=== PATIENT | male | born 1960 | race African-American/Black ===

== ENCOUNTER 2016-10-02 14:27 | Emergency (ER) | payer OTHER ==
[~2016-10-02] VITALS: Ht 180.3 cm; Wt 83.4 kg
[~2016-10-02 14:27] MED LIST: ALBUAER INH; CLIN300C10 PO; FLUT115A INH
[2016-10-02 14:35] VITALS: TEMP 37; Ht 180.3 cm; Wt 83.4 kg
[2016-10-02] MEDS ORDERED: KETOROLAC TROMETHAMINE 30 MG/ML VIAL IV STA (14:53)
[2016-10-02] MEDS ORDERED: SODIUM CHLORIDE 0.9% 1000ML 1,000 ML IV STA (14:53)
[2016-10-02] MEDS ORDERED: SODIUM CHLORIDE 0.9% 1000ML 1,000 ML IV ONE (14:53)
--- NOTE | 2016-10-02 14:53 | EMERGENCY ROOM VISIT NOTE ---
History Report prepared by Shay: Kai Gleason Under the Supervision of: Dr. Pino Real M.D. First contact with patient: 14:43 Chief Complaint: ILLNESS Stated Complaint: SORETHROAT, CHEST/ABD PAIN History of Present Illness The patient is a 56 year old male who presents to the Emergency Room with complaints of a persistent illness that started 2 days ago. He says his symptoms worsened last night. The patient's symptoms include a headache, dizziness, achiness, generalized pain, runny nose, sore throat, coughing, nausea , vomiting, and chest pain (with coughing). He has asthma, and has been using an inhaler. The patient just got out of detention 2 weeks ago. He says nobody at detention was sick around him. The patient says he does not have any current chest pain. Source of History: patient, spouse/significant other Onset: 2 days ago Position: other (global - illness) Timing: other (persistent) Associated Symptoms: + chest pain (with coughing), + cough, + headache, + nausea, + sorethroat, + vomiting Note: Associated symptoms: Dizziness, achiness, generalized pain, runny nose. Review of Systems See HPI for pertinent positives & negatives. A total of 10 systems reviewed and were otherwise negative. Past Medical & Surgical Medical Problems: (1) Asthma Old medical records were reviewed. Nurse's notes were reviewed and I agree with. Family History No pertinent family history Social History Smoking Status: Current Every Day Smoker Drug Use: none Marital Status: Housing Status: lives with significant other Occupation Status: unemployed Current/Historical Medications Scheduled Albuterol (Proventil Hfa), 2 PUFFS INH PRN Azithromycin (Zithromax Z-Lambert), 0 PO UD Fluticasone-Salmeterol 115/21 Mcg (Advair Hfa 115/21 Mcg), 1 PUFF INH BID Oseltamivir (Tamiflu), 75 MG PO BID Allergies Coded Allergies: No Known Allergies (Unverified , 12/31/12) Physical Exam Vital Signs Date Time Temp Pulse Resp B/P Pulse Ox O2 Delivery O2 Flow Rate FiO2 10/02/16 17:51 84 18 97/54 98 Room Air 10/02/16 16:35 79 18 113/58 96 Room Air 10/02/16 14:35 37.0 89 18 105/66 94 Room Air Physical Exam General: Well developed well nourished mildly ill appearing but non toxic male in no acute distress, breathing comfortably on room air. Normal speech. Occasional cough. HEENT: Normal cephalic atraumatic. Pupils are equal round and reactive to light. Sclerae anicteric. Extraocular movements are intact. Oropharynx is pink with moist mucous membranes. No swelling of the mouth lips or tongue. Neck: Supple with a midline trachea. No meningeal signs or stiffness, no JVD or bruits. No Stridor. Chest: Clear to auscultation bilaterally. No wheezes or rhonchi. No increased work of breathing. Heart: regular rate and rhythm. Abdomen: Soft nontender, nondistended without rebound guarding or rigidity. Extremities: No cyanosis clubbing or edema. No calf tenderness or assymetry Spine/Back. Non tender to palpation. No CVA tenderness Skin: Good turgor without rashes. Neurologic exam: Cranial nerves two through 12 are intact. Motor and sensation are intact and symmetrical throughout. No tremor or evidence of withdrawal. Medical Decision & Procedures ER Provider Diagnostic Interpretation: X-ray results as stated below per interpretation by me and the radiologist: CHEST ONE VIEW PORTABLE HISTORY: Atypical CHEST PAIN COMPARISON: Chest 02/08/2013. FINDINGS: The lungs are clear. Cardiac silhouette is normal in size. No pleural effusions. No pneumothorax. IMPRESSION: No acute process. Electronically signed by: Asad Tabares M.D. 10/02/2016 3:22 PM Dictated Date/Time: 10/02/2016 3:21 PM Laboratory Results 10/02/16 15:10 Red Blood Count 5.78, Mean Corpuscular Volume 74.2, Mean Corpuscular Hemoglobin 26.6, Mean Corpuscular Hemoglobin Concent 35.9, Mean Platelet Volume 9.5, Neutrophils (%) (Auto) 74.5, Lymphocytes (%) (Auto) 13.5, Monocytes (%) (Auto) 9.0, Eosinophils (%) (Auto) 2.4, Basophils (%) (Auto) 0.3, Neutrophils # (Auto) 13.09, Lymphocytes # (Auto) 2.38, Monocytes # (Auto) 1.59, Eosinophils # (Auto) 0.43, Basophils # (Auto) 0.06 10/02/16 15:10 Test 10/02/16 15:10 White Blood Count 17.60 K/uL (4.8-10.8) Red Blood Count 5.78 M/uL (4.7-6.1) Hemoglobin 15.4 g/dL (14.0-18.0) Hematocrit 42.9 % (42-52) Mean Corpuscular Volume 74.2 fL (80-100) Mean Corpuscular Hemoglobin 26.6 pg (25-34) Mean Corpuscular Hemoglobin Concent 35.9 g/dl (32-36) Platelet Count 311 K/uL (130-400) Mean Platelet Volume 9.5 fL (7.4-10.4) Neutrophils (%) (Auto) 74.5 % Lymphocytes (%) (Auto) 13.5 % Monocytes (%) (Auto) 9.0 % Eosinophils (%) (Auto) 2.4 % Basophils (%) (Auto) 0.3 % Neutrophils # (Auto) 13.09 K/uL (1.4-6.5) Lymphocytes # (Auto) 2.38 K/uL (1.2-3.4) Monocytes # (Auto) 1.59 K/uL (0.11-0.59) Eosinophils # (Auto) 0.43 K/uL (0-0.5) Basophils # (Auto) 0.06 K/uL (0-0.2) RDW Standard Deviation 41.3 fL (36.4-46.3) RDW Coefficient of Variation 15.4 % (11.5-14.5) Immature Granulocyte % (Auto) 0.3 % Immature Granulocyte # (Auto) 0.05 K/uL (0.00-0.02) Anion Gap 7.0 mmol/L (3-11) Est Creatinine Clear Calc Drug Dose 97.7 ml/min Estimated GFR () 108.9 Estimated GFR (Non- 94.0 BUN/Creatinine Ratio 9.3 (10-20) Calcium Level 8.7 mg/dl (8.5-10.1) Total Bilirubin 1.3 mg/dl (0.2-1) Direct Bilirubin 0.2 mg/dl (0-0.2) Aspartate Amino Transf (AST/SGOT) 12 U/L (15-37) Alanine Aminotransferase (ALT/SGPT) 22 U/L (12-78) Alkaline Phosphatase 92 U/L (45-117) Total Protein 7.5 gm/dl (6.4-8.2) Albumin 3.6 gm/dl (3.4-5.0) Lipase 76 U/L (73-393) Influenza Type A Antigen Neg for Influ A (NEG) Influenza Type B Antigen Neg for Influ B (NEG) Laboratory studies as stated above per my review. Medications Administered Medications (Trade) Dose Ordered Sig/Tami Route Start Time Stop Time Status Last Admin Dose Admin Sodium Chloride (Nss 1000ml) 1,000 ml @ 999 mls/hr Q1H1M STAT IV 10/02/16 14:53 10/02/16 15:53 DC 10/02/16 14:53 999 MLS/HR Ketorolac Tromethamine (Toradol Inj) 30 mg NOW STAT IV 10/02/16 14:53 10/02/16 14:57 DC 10/02/16 15:13 30 MG Azithromycin (Zithromax Tab) 500 mg NOW ONCE PO 10/02/16 17:45 10/02/16 17:46 DC 10/02/16 17:42 500 MG Oseltamivir Phosphate (Tamiflu Cap) 75 mg ONE STAT PO 10/02/16 17:35 10/02/16 17:37 DC 10/02/16 17:42 75 MG ED Course 1444: Past medical records reviewed. The patient was evaluated in room C1B, and a complete history and physical examination were performed. 1730: I reevaluated the patient and he wants something to eat. I am having case management talk to him to help the patient obtain his antibiotics as an outpatient. The patient verbally expressed agreement and understanding of the treatment plan. The patient will be discharged. 1735: Ordered Tamiflu Cap 75 mg PO. 1745: Ordered Zithromax Tab 500 mg PO. Medical Decision Differential diagnoses include: influenza, bronchitis, dehydration, pneumonia, pharyngitis, electrolyte or metabolic abnormalities. This patient comes in as described above. He is placed in room C1. He doesn't history of asthma. Seen here last night with family members were sick and now he feels sick like he has the flu he has diffuse body aches he is a cough and runny nose and achiness. He does have a headache however he has no meningeal signs or stiffness does not appear to be toxic this is also just been one part of his constellation of symptoms. Clinically, he has an influenza-like illness. IV access established was hydrated with IV normal saline. He was given Toradol 30 mg IV. he is feeling better. He is eating food and fluids while he was here. Influenza was negative however this could be a false negative as the test is not a very sensitive test. Chest x-ray was unremarkable and shows no pneumonia or pneumothorax. thereare no acute electrolyte or metabolic abnormalities seen. Count is moderately elevated at 17 however this is nonspecific and I do not find any significant bacterial illness at this point The patient feels good and would like to go home. I will treat him for influenza was given Tamiflu here as well as a prescription for Tamiflu. I will also treat him with antibiotics with azithromycin Z-Lambert again the first dose was given here. Additionally, an azithromycin prescription was also given. He does have a history of asthma and I do think that's antibiotic coverage is warranted due to this. He may have more of a sinusitis bronchitis type picture as well. He feels good and like to go home. he'll rest and drink plenty of fluids .use ibuprofen [id number] for pain return if: Worsening of symptoms, not tolerating fluids, any problems or concerns. He is happy the plan and discharged to home. Impression Primary Impression: Influenza-like illness Additional Impression: Bronchitis Scribe Attestation The scribe's documentation has been prepared under my direction and personally reviewed by me in its entirety. I confirm that the note above accurately reflects all work, treatment, procedures, and medical decision making performed by me. Departure Information Dispostion Home / Self-Care Prescriptions Oseltamivir (Tamiflu) 75 Mg Cap 75 MG PO BID, #10 CAP Prov: Pino Real M.D. 10/02/16 Azithromycin (ZITHROMAX Z-LAMBERT) 250 Mg Tab 0 PO UD, #1 PKT Prov: Pino Real M.D. 10/02/16 Referrals No Doctor, Assigned (PCP) Forms HOME CARE DOCUMENTATION FORM, IMPORTANT VISIT INFORMATION, WORK / SCHOOL INSTRUCTIONS Patient Instructions A Signature Page, [facility] Additional Instructions Rest. Drink plenty of fluids. Use azithromycin Z-Lambert as directedantibiotic Use Tamiflu twice a day for 5 days-antiviral for the flu Continue to use your inhaler if needed For pain, may use ibuprofen 600 mg every 6 hours, take with food Return to the ER if: Worsening symptoms, not tolerating fluids, increasing pain , shortness of breath, any new problems concerns Up with your doctor this week for recheck or return to ER if symptoms worsen
--- NOTE | 2016-10-02 15:24 | DIAGNOSTIC IMAGING REPORT ---
CHEST ONE VIEW PORTABLE HISTORY: Atypical CHEST PAIN COMPARISON: Chest 02/08/2013. FINDINGS: The lungs are clear. Cardiac silhouette is normal in size. No pleural effusions. No pneumothorax. IMPRESSION: No acute process. Electronically signed by: Asad Tabares M.D. 10/02/2016 3:22 PM Dictated Date/Time: 10/02/2016 3:21 PM
[2016-10-02 15:28] LABS: BASO % 0.3 %; BASO ABS # 0.06 K/uL (0-0.2); COMPLETE YES; EOS % 2.4 %; HEMATOCRIT 42.9 % (42-52); IG% 0.3 %; LYMPH % 13.5 %; LYMPH ABS # 2.38 K/uL (1.2-3.4); MEAN CELL VOLUME 74.2 fL (80-100); MEAN CORPUSCULAR HEMOGLOBIN 26.6 pg (25-34); MEAN CORPUSCULAR HGB CONC 35.9 g/dl (32-36); MEAN PLATELET VOLUME 9.5 fL (7.4-10.4); NEUT % 74.5 %; PLATELET COUNT 311 K/uL (130-400); RED BLOOD COUNT 5.78 M/uL (4.7-6.1)
[2016-10-02 15:47] LABS: BUN/CREATININE RATIO 9.3 (10-20); CALCIUM 8.7 mg/dl (8.5-10.1); CREATININE 0.92 mg/dl (0.60-1.40); POTASSIUM 3.5 mmol/L (3.5-5.1)
[2016-10-02] MEDS ORDERED: OSELTAMIVIR PHOSPHATE 75 MG CAP PO STA (17:35)
[2016-10-02] MEDS ORDERED: OSEL75CA12 PO (17:38)
[2016-10-02] MEDS ORDERED: AZITTAB PO (17:38)
[2016-10-02] MEDS ORDERED: AZITHROMYCIN 250 MG TAB PO ONE (17:45)
[2016-10-02 17:51] VITALS: BP 97/54; PULSE 84; O2SAT 98
== END 2016-10-02 17:53 | disposition home or self-care (01) ==
LOC: C.EDB 14:29 → C.EDC 17:53
DX: J11.1 Influenza due to unidentified influenza virus with other respiratory manifestations (principal); J40 Bronchitis, not specified as acute or chronic; J45.909 Unspecified asthma, uncomplicated; F17.200 Nicotine dependence, unspecified, uncomplicated

== ENCOUNTER 2022-12-09 19:29 | Observation (INO) ==
[2022-12-09 20:32] LABS: Hematocrit (blood only) 39.1 % (42.0-52.0); Hemoglobin 14.2 g/dl (14.0-18.0); Mean Corpuscular Hgb Conc 36.3 g/dL (32.0-36.0); Mean Corpuscular Volume 74.5 fL (80.0-100.0); Mean Platelet Volume 8.7 fL (9.4-12.4); Platelet Count 615 K/uL (130-400); RDW Coefficient of Variation 13.5 % (11.5-14.5); RDW Standard Deviation 35.9 fL (36.4-46.3); Red Blood Count 5.25 M/uL (4.70-6.10); White Blood Count 11.84 K/ul (4.8-10.8)
[2022-12-09 20:33] LABS: Appearance Urine Cloudy (Clear); Bacteria Urine Automated Negative (Negative); Bilirubin Urine Negative (Negative); Blood Urine Negative (Negative); Color Urine Yellow; Glucose Urine UA Negative (Negative); Ketones Urine Negative (Negative); Leukocyte Esterase Urine Negative (Negative); Nitrite Urine Negative (Negative); Protein Urine Trace (Negative); RBC Urine Automated 0-4 /hpf (0-4); Specific Gravity Urine 1.023 (1.000-1.030); Urobilinogen Urine Negative (Negative); pH Urine 6.5 (4.5-7.5)
[2022-12-09 20:48] LABS: Alanine Aminotransferase 22 U/L (7-52); Albumin Globulin Ratio 0.9 (0.9-2); Albumin Level 3.7 gm/dl (3.4-5.0); Alkaline Phosphatase 86 U/L (34-104); Anion Gap 6 (3-11); Aspartate Aminotransferase 15 U/L (13-39); BUN Creatinine Ratio 15.8 (10-20); Bilirubin,Total 0.3 mg/dl (0.2-1.0); Blood Urea Nitrogen 12 mg/dl (6-23); Calcium 9.5 mg/dl (8.5-10.1); Carbon Dioxide 27 mmol/L (21-32); Chloride 104 mmol/L (98-107); Est GFR (African American) 114.9 ml/min; Est GFR (Non-African American) 99.2 ml/min; Globulin 4.2 gm/dl (2.5-4.0); Glucose 155 mg/dl (70-99(Fasting)); Lipase 15 U/L (11-82); Sodium 137 mmol/L (136-145); Total Protein 7.9 gm/dl (6.0-8.3)
[2022-12-09] MEDS ORDERED: ONDANSETRON INJ 2 MG/ML 2 ML VIAL IV STA (22:09)
[2022-12-09 22:13] LABS: Basophils # (auto) 0.12 K/uL (0-0.2); Eosinophils # (auto) 0.92 K/uL (0-0.50); Eosinophils % (auto) 7.8 %; Immature Granulocytes # (auto) 0.24 K/uL (0.01-0.20); Lymphocytes # (auto) 2.36 K/uL (1.2-3.4); Lymphocytes % (auto) 19.9 %; Monocytes # (auto) 1.24 K/uL (0.11-0.59); Monocytes % (auto) 10.5 %; Neutrophils # (auto) 6.96 K/uL (1.40-6.50); Neutrophils % (auto) 58.8 %; Polychromasia 1+; Target Cells 2+; Toxic Vacuolation 1+
[2022-12-09] MEDS ORDERED: SODIUM CHLORIDE 0.9% 1000ML 1,000 ML IV SCH (22:15)
[2022-12-09] MEDS: MoRPHine SULFATE 4 MG/ML 1 ML CARP\\VIAL IV PRN (22:22)
[2022-12-09 22:58] LABS: Troponin I High Sensitivity 5.8 pg/ml (0-20)
[2022-12-09] MEDS ORDERED: OPTIRAY 320 500ml IV ONE (22:58)
--- NOTE | 2022-12-10 00:14 | CT Scan Report ---
Exam(s): CTA CHEST IV Amt: 112ml optiray 320 EXAM: CT Angiography Chest With Intravenous Contrast CLINICAL HISTORY: Reason for exam: PE. TECHNIQUE: Axial computed tomographic angiography images of the chest with intravenous contrast. CTDI is 20 mGy and DLP is 586.04 mGy-cm. Automated exposure control was utilized for the study. A dose lowering technique was utilized adhering to the principles of ALARA. MIP reconstructed images were created and reviewed. COMPARISON: No relevant prior studies available. FINDINGS: Pulmonary arteries: There is a tiny partially obstructive pulmonary embolus in the left lower lobe subsegmental pulmonary artery. Aorta: No acute findings. No thoracic aortic aneurysm. Lungs: Moderate to heavy peribronchial thickening of the central and peripheral bronchi with right lower lobe consolidation and ground-glass patchy opacities throughout the lungs. Pleural space: Unremarkable. No significant effusion. No pneumothorax. Heart: Unremarkable. No cardiomegaly. No significant pericardial effusion. No evidence of RV dysfunction. Bones/joints: No acute fracture. No dislocation. Soft tissues: Unremarkable. Lymph nodes: Enlarged mediastinal hilar lymph nodes. IMPRESSION: 1. Tiny partially obstructive pulmonary embolus in the left lower lobe segmental pulmonary artery. 2. Findings concerning for atypical pneumonia with left lower lobe consolidation. Communications: Call Doctor Above results Electronically signed by: Jenny Partida MD 12/10/22 00:13 AM
--- NOTE | 2022-12-10 00:31 | CT Scan Report ---
Exam(s): CT ABDOMEN + PELVIS With Contrast IV Amt: 112 ml optiray 320 EXAM: CT Abdomen and Pelvis With Intravenous Contrast CLINICAL HISTORY: abd pain/right side back pain. TECHNIQUE: Axial computed tomography images of the abdomen and pelvis with intravenous contrast. CTDI is 28 mGy and DLP is 586.04 mGy-cm. Automated exposure control was utilized for the study. A dose lowering technique was utilized adhering to the principles of ALARA. CONTRAST: Patient received 112 ml optiray 320 of IV contrast COMPARISON: No relevant prior studies available. FINDINGS: Lung bases: Patchy to confluent bibasilar airspace consolidations involving both lower lobes and minimally in the anteromedial minimally included right upper lobe. ABDOMEN: Liver: Unremarkable. No mass. Gallbladder and bile ducts: Unremarkable. No calcified stones. No ductal dilation. Pancreas: Unremarkable. No mass. No ductal dilation. Spleen: Unremarkable. No splenomegaly. Adrenals: Unremarkable. No mass. Kidneys and ureters: There is malrotation of the right kidney. The kidneys demonstrate normal enhancement without hydronephrosis or obstructing nephrolithiasis. Stomach and bowel: No evidence for focal high-grade bowel obstruction. There are a few small bowel loops in the inferior pelvis demonstrating retained material without evidence for bowel dilation. No significant mucosal thickening. PELVIS: Appendix: The appendix is suggested medial to the cecum but is poorly delineated. No secondary findings to suggest acute appendicitis. Bladder: Unremarkable. No mass. Reproductive: Unremarkable as visualized. ABDOMEN and PELVIS: Intraperitoneal space: Unremarkable. No free air. No significant fluid collection. Bones/joints: Degenerative changes involving the lumbar spine. No acute osseous abnormality. No dislocation. Soft tissues: Unremarkable. Vasculature: Unremarkable. No abdominal aortic aneurysm. Lymph nodes: Unremarkable. No enlarged lymph nodes. IMPRESSION: 1. Patchy to confluent bibasilar airspace consolidations involving both lower lobes and minimally in the anteromedial minimally included right upper lobe. Findings are consistent with pneumonia. 2. No evidence for focal high-grade bowel obstruction. There are a few small bowel loops in the inferior pelvis demonstrating retained material without evidence for bowel dilation. Suspect normal variation. However, subtle enteritis with delayed transit through the small bowel is also a consideration. No free intraperitoneal fluid or pneumoperitoneum. Electronically signed by: Kai Bright MD 12/10/22 00:29 AM
[2022-12-10] MEDS: MoRPHine SULFATE 4 MG/ML 1 ML CARP\\VIAL IV PRN (03:00)
[2022-12-10] MEDS ORDERED: ONDANSETRON INJ 2 MG/ML 2 ML VIAL IV PRN (03:31)
[2022-12-10] MEDS ORDERED: ACETAMINOPHEN 325 MG TAB PO PRN (03:31)
[2022-12-10] MEDS ORDERED: cefTRIAXone SODIUM 1,000 MG in DEXTROSE 5% AD-VAN 50 ML IV SCH (04:00)
[2022-12-10] MEDS ORDERED: ENOXAPARIN 80 MG/0.8 ML SYR SQ STA (04:15)
--- NOTE | 2022-12-10 05:10 | History & Physical Report ---
Date of Service December 10, 2022 Assessment & Plan (1) Pulmonary embolism on left: (2) Pneumonia: (3) Hypoxia: (4) Asthma: (5) Tobacco use disorder: Plan Bilateral lower lobe pneumonia, left greater than right/asthma history- Consolidation left lower lobe Atypical presentation bilaterally Ceftriaxone 1 g IV daily Azithromycin 500 mg IV daily DuoNebs every 4 hours as needed Albuterol HFA 2 puffs 4 times daily Pulmonary embolism left lower lobe- Start Lovenox 1 mg/kg subcu every 12 hours tonight, and plan to convert to Eliquis prior to discharge Significant left thigh pain. We will order bilateral lower extremity venous Dopplers to assess for DVT Tobacco use disorder- NicoDerm patch Admission and Anticipated Discharge Date Admission Date: December 10, 2022 History of Present Illness Chief Complaint: The patient presents to the emergency department with complaint of persistent productive cough, shortness of breath, dyspnea on exertion, left thigh pain. He also has GI discomfort that he attributes to the antibiotic Keflex he was prescribed at the emergency department when he initially presented on 12/03/2022. Primary Care Provider: NO PCP The patient is a 62-year-old male with a past medical history including asthma and tobacco use. He initially presented to the emergency department on 12/03/2022 with symptoms as above, except for left thigh pain. He was found to have pneumonia at that time, and was advised to be admitted to the hospital, however, he left AMA due to home living and working situation. He has a special needs child who is 16, and his and he all moved to the area 2 weeks ago. He has found a place to live, however, the abdomen living in the [facility] for a few days. He has been working at [employer], reports that he enjoys cooking, and is concerned about missing his job. Chest x-ray reveals bilateral lower lobe infiltrates. CT angiography chest PE protocol in addition, notes a small segmental left lower lobe pulmonary embolism. I have added bilateral lower extremity venous Dopplers, to assess for associated DVT. Allergies Allergy/AdvReac Type Severity Reaction Status Date / Time No Known Allergies Allergy Unverified 12/09/22 21:24 Home Medications Medication Instructions Recorded Confirmed Type cephalexin 500 mg capsule 500 mg PO Q6H 10 days #40 caps 12/03/22 12/09/22 Rx Past Med/Surg History Social History Smoking Status: Current every day smoker Second Hand Exposure: Yes; Do You Dip or Chew Tobacco: No; Tobacco Cessation Education Requested by Patient: Yes Hx Alcohol Use: Yes Alcohol type: beer Hx Substance Use: No Preferred Language: Yakut Communication Ability: Effective Dental Technologist Required: No Beliefs That Will Affect Care: None Current Living Situation: Spouse and Family Other Information That Helps Us Care for You: No Feels Safe at Home: Yes Safety Concerns: Feels Safe At This Time Assistive Devices: Glasses Review of Systems Review of Systems: The patient denies palpitations, lower extremity swelling, sore throat, fevers, chills, sweats, weight change, fatigue, nausea, vomiting, diarrhea , constipation, abdominal pain, pelvic pain, blood in urine or stool, dysuria, urinary frequency or urgency, lightheadedness, dizziness, headache, memory loss, loss of consciousness, rash, abnormal bruising or bleeding, imbalance, focal or generalized weakness, numbness or tingling in arms or right leg, generalized arthralgias or myalgias, back or neck pain, or night sweats. The review of systems is otherwise negative other than for that already noted above, and at least 10 systems have been reviewed. Physical Exam Physical Exam: The patient is awake, alert and oriented 3, well developed and well nourished, normocephalic and atraumatic, lying in bed and in no acute distress. HEENT--PERRL, EOMI, mucous membranes and oropharynx normal. Neck--supple. No JVD. No bruits. Thyroid normal, trachea midline, no adenopathy. Heart--normal S1 and S2. No murmurs, rubs or gallops. Lungs--decreased breath sounds at the bases bilaterally. No respiratory distress, no accessory muscle use. Abdomen--normal bowel sounds and soft. Nontender. Nondistended, no hernias or masses, no organomegaly. Extremities--no edema. Mild reproducible pain left lateral thigh Dermatologic--normal skin turgor, normal color, no abnormal lymph nodes, no rash. Neurologic--cranial nerves II through XII grossly intact. Rheumatologic-range of motion limited by left thigh pain Psychiatric--normal affect. Results & Data Results & Data Vital Signs (Past 12 Hours) Vital Signs Temp Pulse Pulse Resp BP BP Pulse Ox 12/10/22 03:38 36.8 C 54 L 15 135/73 94 12/10/22 03:03 69 18 147/85 H 94 12/10/22 00:36 98 H 20 126/72 93 12/09/22 21:05 68 20 153/77 H 93 12/09/22 23:41 96 12/09/22 19:38 36.9 C 73 20 130/69 94 O2 Del Method 12/10/22 03:38 Room Air 12/10/22 03:03 Room Air 12/10/22 00:36 Room Air 12/09/22 21:05 Room Air 12/09/22 23:41 Room Air 12/09/22 19:38 Room Air Laboratory Results Laboratory Results WBC 11.84 K/ul (4.8-10.8) H 12/09/22 20:11 RBC 5.25 M/uL (4.70-6.10) 12/09/22 20:11 Hgb 14.2 g/dl (14.0-18.0) 12/09/22 20:11 Hct 39.1 % (42.0-52.0) L 12/09/22 20:11 MCV 74.5 fL (80.0-100.0) L 12/09/22 20:11 MCH 27.0 pg (25.0-34.0) 12/09/22 20:11 MCHC 36.3 g/dL (32.0-36.0) H 12/09/22 20:11 RDW Std Deviation 35.9 fL (36.4-46.3) L 12/09/22 20:11 RDW Coeff of Randi 13.5 % (11.5-14.5) 12/09/22 20:11 Plt Count 615 K/uL (130-400) H 12/09/22 20:11 MPV 8.7 fL (9.4-12.4) L 12/09/22 20:11 Immature Gran % (Auto) 2.0 % 12/09/22 20:11 Neut % (Auto) 58.8 % 12/09/22 20:11 Lymph % (Auto) 19.9 % 12/09/22 20:11 Kent % (Auto) 10.5 % 12/09/22 20:11 Eos % (Auto) 7.8 % 12/09/22 20:11 Baso % (Auto) 1.0 % 12/09/22 20:11 Neut # (Auto) 6.96 K/uL (1.40-6.50) H 12/09/22 20:11 Lymph # (Auto) 2.36 K/uL (1.2-3.4) 12/09/22 20:11 Kent # (Auto) 1.24 K/uL (0.11-0.59) H 12/09/22 20:11 Eos # (Auto) 0.92 K/uL (0-0.50) H 12/09/22 20:11 Baso # (Auto) 0.12 K/uL (0-0.2) 12/09/22 20:11 Immature Gran # (Auto) 0.24 K/uL (0.01-0.20) H 12/09/22 20:11 Toxic Vacuolation 1+ 12/09/22 20:11 Polychromasia 1+ 12/09/22 20:11 Target Cells 2+ 12/09/22 20:11 Sodium 137 mmol/L (136-145) 12/09/22 20:11 Potassium 4.0 mmol/L (3.5-5.1) 12/09/22 20:11 Chloride 104 mmol/L (98-107) 12/09/22 20:11 Carbon Dioxide 27 mmol/L (21-32) 12/09/22 20:11 Anion Gap 6 (3-11) 12/09/22 20:11 BUN 12 mg/dl (6-23) 12/09/22 20:11 Creatinine 0.76 mg/dl (0.6-1.4) 12/09/22 20:11 Est Cr Clr Drug Dosing Not Reportable 12/09/22 20:11 Est GFR ( Amer) 114.9 ml/min 12/09/22 20:11 Est GFR (Non-Af Amer) 99.2 ml/min 12/09/22 20:11 BUN/Creatinine Ratio 15.8 (10-20) 12/09/22 20:11 Glucose 155 mg/dl (70-99(Fasting)) H 12/09/22 20:11 Calcium 9.5 mg/dl (8.5-10.1) 12/09/22 20:11 Total Bilirubin 0.3 mg/dl (0.2-1.0) 12/09/22 20:11 AST 15 U/L (13-39) 12/09/22 20:11 ALT 22 U/L (7-52) 12/09/22 20:11 Alkaline Phosphatase 86 U/L (34-104) 12/09/22 20:11 Troponin I High Sens 5.8 pg/ml (0-20) 12/09/22 20:11 Total Protein 7.9 gm/dl (6.0-8.3) 12/09/22 20:11 Albumin 3.7 gm/dl (3.4-5.0) 12/09/22 20:11 Globulin 4.2 gm/dl (2.5-4.0) H 12/09/22 20:11 Albumin/Globulin Ratio 0.9 (0.9-2) 12/09/22 20:11 Lipase 15 U/L (11-82) 12/09/22 20:11 Urine Color Yellow 12/09/22 20:10 Urine Appearance Cloudy (Clear) A 12/09/22 20:10 Urine pH 6.5 (4.5-7.5) 12/09/22 20:10 Ur Specific [place]ward 1.023 (1.000-1.030) 12/09/22 20:10 Urine Protein Trace (Negative) H 12/09/22 20:10 Urine Glucose (UA) Negative (Negative) 12/09/22 20:10 Urine Ketones Negative (Negative) 12/09/22 20:10 Urine Blood Negative (Negative) 12/09/22 20:10 Urine Nitrite Negative (Negative) 12/09/22 20:10 Urine Bilirubin Negative (Negative) 12/09/22 20:10 Urine Urobilinogen Negative (Negative) 12/09/22 20:10 Ur Leukocyte Esterase Negative (Negative) 12/09/22 20:10 Urine WBC (Auto) 1-5 /hpf (0-5) 12/09/22 20:10 Urine RBC (Auto) 0-4 /hpf (0-4) 12/09/22 20:10 U Hyaline Cast (Auto) 1-5 /lpf (0-5) 12/09/22 20:10 U Epithel Cells (Auto) 5-10 /lpf (0-5) H 12/09/22 20:10 Urine Bacteria (Auto) Negative (Negative) 12/09/22 20:10 SARS-CoV-2, RNA, NAAT NEGATIVE (NEGATIVE) 12/10/22 01:15 Impressions Abdomen/Pelvis CT 12/09/22 22:09 Exam(s): CT ABDOMEN + PELVIS With Contrast IV Amt: 112 ml optiray 320 EXAM: CT Abdomen and Pelvis With Intravenous Contrast CLINICAL HISTORY: abd pain/right side back pain. TECHNIQUE: Axial computed tomography images of the abdomen and pelvis with intravenous contrast. CTDI is 28 mGy and DLP is 586.04 mGy-cm. Automated exposure control was utilized for the study. A dose lowering technique was utilized adhering to the principles of ALARA. CONTRAST: Patient received 112 ml optiray 320 of IV contrast COMPARISON: No relevant prior studies available. FINDINGS: Lung bases: Patchy to confluent bibasilar airspace consolidations involving both lower lobes and minimally in the anteromedial minimally included right upper lobe. ABDOMEN: Liver: Unremarkable. No mass. Gallbladder and bile ducts: Unremarkable. No calcified stones. No ductal dilation. Pancreas: Unremarkable. No mass. No ductal dilation. Spleen: Unremarkable. No splenomegaly. Adrenals: Unremarkable. No mass. Kidneys and ureters: There is malrotation of the right kidney. The kidneys demonstrate normal enhancement without hydronephrosis or obstructing nephrolithiasis. Stomach and bowel: No evidence for focal high-grade bowel obstruction. There are a few small bowel loops in the inferior pelvis demonstrating retained material without evidence for bowel dilation. No significant mucosal thickening. PELVIS: Appendix: The appendix is suggested medial to the cecum but is poorly delineated. No secondary findings to suggest acute appendicitis. Bladder: Unremarkable. No mass. Reproductive: Unremarkable as visualized. ABDOMEN and PELVIS: Intraperitoneal space: Unremarkable. No free air. No significant fluid collection. Bones/joints: Degenerative changes involving the lumbar spine. No acute osseous abnormality. No dislocation. Soft tissues: Unremarkable. Vasculature: Unremarkable. No abdominal aortic aneurysm. Lymph nodes: Unremarkable. No enlarged lymph nodes. IMPRESSION: 1. Patchy to confluent bibasilar airspace consolidations involving both lower lobes and minimally in the anteromedial minimally included right upper lobe. Findings are consistent with pneumonia. 2. No evidence for focal high-grade bowel obstruction. There are a few small bowel loops in the inferior pelvis demonstrating retained material without evidence for bowel dilation. Suspect normal variation. However, subtle enteritis with delayed transit through the small bowel is also a consideration. No free intraperitoneal fluid or pneumoperitoneum. Electronically signed by: Kai Bright MD 12/10/22 00:29 AM Chest CTA 12/09/22 22:09 CR Exam(s): CTA CHEST IV Amt: 112ml optiray 320 EXAM: CT Angiography Chest With Intravenous Contrast CLINICAL HISTORY: Reason for exam: PE. TECHNIQUE: Axial computed tomographic angiography images of the chest with intravenous contrast. CTDI is 20 mGy and DLP is 586.04 mGy-cm. Automated exposure control was utilized for the study. A dose lowering technique was utilized adhering to the principles of ALARA. MIP reconstructed images were created and reviewed. COMPARISON: No relevant prior studies available. FINDINGS: Pulmonary arteries: There is a tiny partially obstructive pulmonary embolus in the left lower lobe subsegmental pulmonary artery. Aorta: No acute findings. No thoracic aortic aneurysm. Lungs: Moderate to heavy peribronchial thickening of the central and peripheral bronchi with right lower lobe consolidation and ground-glass patchy opacities throughout the lungs. Pleural space: Unremarkable. No significant effusion. No pneumothorax. Heart: Unremarkable. No cardiomegaly. No significant pericardial effusion. No evidence of RV dysfunction. Bones/joints: No acute fracture. No dislocation. Soft tissues: Unremarkable. Lymph nodes: Enlarged mediastinal hilar lymph nodes. IMPRESSION: 1. Tiny partially obstructive pulmonary embolus in the left lower lobe segmental pulmonary artery. 2. Findings concerning for atypical pneumonia with left lower lobe consolidation. Communications: Call Doctor Above results Electronically signed by: Jenny Partida MD 12/10/22 00:13 AM Code Status & VTE Plan Code Status Full code VTE Prophylaxis Plan VTE Prophylaxis will be ordered: Yes PG Care Time/CCT Total # of Minutes Spent Total Time Spent with Patient: Total time spent is greater than 50% in coordination of care (as documented) at patient's floor/unit and/or counseling patient: Coding Level of Care Code 14662 INT INP/OBS CARE 2/55MIN Diagnoses Pulmonary embolism on left I26.99 Pneumonia J18.9 Hypoxia R09.02 Asthma J45.909 Tobacco use disorder F17.200
[2022-12-10] MEDS ORDERED: ALBUT/IPRATROP 3MG/0.5MG NEB 3 ML VIAL NEB PRN (05:17)
[2022-12-10] MEDS: AZITHROMYCIN 500 MG in DEXTROSE 5% 250 ML IV SCH (05:55)
[2022-12-10] MEDS ORDERED: ENOXAPARIN 80 MG/0.8 ML SYR SQ SCH (06:00)
--- NOTE | 2022-12-10 06:48 | Emergency Department Note ---
History of Present Illness General Chief complaint: Vomiting Stated complaint: BLOOD IN STOOL,SOB,VOMITING Time Seen by Provider: 12/09/22 21:20 History of Present Illness Maximum Pain Intensity: 7 This is a 62-year-old male presenting to the emergency department for evaluation of abdominal pain, shortness of breath, and vomiting. The patient was seen about 6 days ago in this facility and diagnosed with pneumonia. At that visit he had a markedly elevated white blood cell count of 27,000. The patient was to be admitted, but refused, and left AGAINST MEDICAL ADVICE. The patient was given prescriptions for Zithromax and Keflex, which he has been taking as prescribed. He believes the antibiotics are causing most of his symptoms. The patient has a very atypical social situation at this time. He recently moved to the area and is working at [employer]. He has a special needs child. At one point in the past month he was living inside a [employer]. The patient does not typically go to the doctor and considers himself healthy. He rates his discomfort today as 7/10. Home Medications Medication Instructions Recorded Confirmed Type cephalexin 500 mg capsule 500 mg PO Q6H 10 days #40 caps 12/03/22 12/09/22 Rx Allergies Allergy/AdvReac Type Severity Reaction Status Date / Time No Known Allergies Allergy Unverified 12/09/22 21:24 Past Med/Surg History Medical History Pulmonary embolism on left Tobacco use disorder Surgical History No significant past surgical history Social History Smoking Status: Current every day smoker Second Hand Exposure: Yes; Do You Dip or Chew Tobacco: No; Tobacco Cessation Education Requested by Patient: Yes Hx Alcohol Use: Yes Alcohol type: beer Hx Substance Use: No Preferred Language: Uzbek Communication Ability: Effective Practice Support Specialist Required: No Beliefs That Will Affect Care: None Current Living Situation: Spouse and Family Other Information That Helps Us Care for You: No Feels Safe at Home: Yes Safety Concerns: Feels Safe At This Time Assistive Devices: Glasses Review of Systems A total of 10 systems reviewed and were otherwise negative Physical Exam Vital Signs Vital Signs - 24 hr 12/09/22 19:38 12/09/22 23:41 12/09/22 21:05 Temperature 36.9 C Temperature Source Temporal Artery Scan Pulse Rate 73 Pulse Rate [Apical] 68 Pulse Rhythm [Apical] Regular Pulse Strength [Apical] Normal Respiratory Rate 20 20 Respiratory Effort / Characteristics Non-Labored Spontaneous Non-Labored Respiratory Depth Normal Normal Respiratory Pattern Regular Blood Pressure 130/69 Blood Pressure [Right Arm] 153/77 H Blood Pressure Mean 89 Blood Pressure Mean [Right Arm] 102 Pulse Oximetry 94 96 93 Oxygen Delivery Method Room Air Room Air Room Air Sepsis Recent Fever Within 48 Hours No Sepsis New/Unexplained Change in Mental Status N/A Sepsis Action Taken by Nursing No Action Required 12/10/22 00:36 Temperature Temperature Source Pulse Rate Pulse Rate [Apical] 98 H Pulse Rhythm [Apical] Regular Pulse Strength [Apical] Normal Respiratory Rate 20 Respiratory Effort / Characteristics Non-Labored Respiratory Depth Normal Respiratory Pattern Regular Blood Pressure Blood Pressure [Right Arm] 126/72 Blood Pressure Mean Blood Pressure Mean [Right Arm] 90 Pulse Oximetry 93 Oxygen Delivery Method Room Air Sepsis Recent Fever Within 48 Hours Sepsis New/Unexplained Change in Mental Status Sepsis Action Taken by Nursing VITALS: Vitals are noted on the nurse's note and reviewed by myself. Vital signs stable. GENERAL: Well-developed, well-nourished, black male, who is moderately uncomfortable on presentation. HEAD: Normocephalic atraumatic. NECK: Supple without nuchal rigidity. No lymphadenopathy. No thyromegaly. Cervical spine is nontender. HEART: Regular rate and rhythm without murmurs gallops or rubs. LUNGS: Generally clear with diminished sounds at the bases bilaterally. ABDOMEN: Positive normal bowel sounds x 4. Soft, nontender, without masses or organomegaly. No guarding or rebound tenderness. MUSCULOSKELETAL: No muscle atrophy, erythema, or edema noted. Full range of motion in all extremities. NEURO: Patient was alert and oriented to person place and time. CN II through XII grossly intact. Course Administered Medications Ceftriaxone Sodium 1,000 mg/ (Dextrose) 50 mls @ 100 mls/hr IV DAILY [facility]; Protocol Stop: 12/17/22 03:59 Last Infusion: 12/10/22 05:27 Dose: 0 mls/hr Documented By: Admin: 12/10/22 04:54 Dose: 100 mls/hr Documented By: ANNE MARIE Azithromycin 500 mg/ Dextrose 255 mls @ 125 mls/hr IV DAILY@1100 [facility] Stop: 12/17/22 05:59 Last Admin: 12/10/22 05:55 Dose: 125 mls/hr Documented By: ARELY Discontinued Medications Enoxaparin Sodium (Enoxaparin 80 Mg/0.8 Ml Syr) 70 mg SQ NOW STA Stop: 12/10/22 04:16 Last Admin: 12/10/22 05:54 Dose: 70 mg Documented By: ARELY Sodium Chloride (Nss 1000ml) 1,000 mls @ 999 mls/hr IV .Q1H1M ORLY Stop: 12/09/22 23:15 Last Infusion: 12/10/22 01:59 Dose: 0 mls/hr Documented By: Admin: 12/09/22 22:20 Dose: 999 mls/hr Documented By: JOHNNY Ioversol (Optiray 320 500ml) 112 ml IV ONCE ONE Stop: 12/09/22 22:59 Last Admin: 12/09/22 23:04 Dose: 112 ml Documented By: ROOSEVELT Morphine Sulfate (Morphine Sulfate 4 Mg/Ml 1 Ml Carp\Vial) 4 mg IV Q30M PRN PRN Reason: Pain Stop: 12/23/22 22:08 Last Admin: 12/10/22 03:00 Dose: 4 mg Documented By: Admin: 12/09/22 22:22 Dose: 4 mg Documented By: JOHNNY Ondansetron HCl (Ondansetron Inj 2 Mg/Ml 2 Ml Vial) 4 mg IV NOW STA Stop: 12/09/22 22:10 Last Admin: 12/09/22 22:22 Dose: 4 mg Documented By: JOHNNY Medical Decision Making Differential Diagnosis Differential diagnosis: Etiologies such as biliary colic, cholecystitis, hepatitis, pancreatitis, cardiac disease, pancreatitis, gastritis, peptic ulcer disease, appendicitis, cystitis, diverticulitis, mesenteric ischemia, inflammatory bowel disease, ileus, bowel obstruction, testicular/adnexal torsion, aortic pathology, shingles, as well as others were considered Laboratory Data 12/09/22 20:11 12/09/22 20:11 Lab Results 12/09/22 12/09/22 12/09/22 Range/Units 20:10 20:11 20:11 WBC 11.84 H (4.8-10.8) K/ul RBC 5.25 (4.70-6.10) M/uL Hgb 14.2 (14.0-18.0) g/dl Hct 39.1 L (42.0-52.0) % MCV 74.5 L (80.0-100.0) fL MCH 27.0 (25.0-34.0) pg MCHC 36.3 H (32.0-36.0) g/dL RDW Std Deviation 35.9 L (36.4-46.3) fL RDW Coeff of Randi 13.5 (11.5-14.5) % Plt Count 615 H (130-400) K/uL MPV 8.7 L (9.4-12.4) fL Immature Gran % (Auto) 2.0 % Neut % (Auto) 58.8 % Lymph % (Auto) 19.9 % Chester % (Auto) 10.5 % Eos % (Auto) 7.8 % Baso % (Auto) 1.0 % Neut # (Auto) 6.96 H (1.40-6.50) K/uL Lymph # (Auto) 2.36 (1.2-3.4) K/uL Chester # (Auto) 1.24 H (0.11-0.59) K/uL Eos # (Auto) 0.92 H (0-0.50) K/uL Baso # (Auto) 0.12 (0-0.2) K/uL Immature Gran # (Auto) 0.24 H (0.01-0.20) K/uL Toxic Vacuolation 1+ Polychromasia 1+ Target Cells 2+ Sodium 137 (136-145) mmol/L Potassium 4.0 (3.5-5.1) mmol/L Chloride 104 (98-107) mmol/L Carbon Dioxide 27 (21-32) mmol/L Anion Gap 6 (3-11) BUN 12 (6-23) mg/dl Creatinine 0.76 (0.6-1.4) mg/dl Est Cr Clr Drug Dosing Not Reportable Est GFR ( Amer) 114.9 ml/min Est GFR (Non-Af Amer) 99.2 ml/min BUN/Creatinine Ratio 15.8 (10-20) Glucose 155 H (70-99(Fasting)) mg/dl Calcium 9.5 (8.5-10.1) mg/dl Total Bilirubin 0.3 (0.2-1.0) mg/dl AST 15 (13-39) U/L ALT 22 (7-52) U/L Alkaline Phosphatase 86 (34-104) U/L Troponin I High Sens 5.8 (0-20) pg/ml Total Protein 7.9 (6.0-8.3) gm/dl Albumin 3.7 (3.4-5.0) gm/dl Globulin 4.2 H (2.5-4.0) gm/dl Albumin/Globulin Ratio 0.9 (0.9-2) Lipase 15 (11-82) U/L Urine Color Yellow Urine Appearance Cloudy A (Clear) Urine pH 6.5 (4.5-7.5) Ur Specific [place] 1.023 (1.000-1.030) Urine Protein Trace H (Negative) Urine Glucose (UA) Negative (Negative) Urine Ketones Negative (Negative) Urine Blood Negative (Negative) Urine Nitrite Negative (Negative) Urine Bilirubin Negative (Negative) Urine Urobilinogen Negative (Negative) Ur Leukocyte Esterase Negative (Negative) Urine WBC (Auto) 1-5 (0-5) /hpf Urine RBC (Auto) 0-4 (0-4) /hpf U Hyaline Cast (Auto) 1-5 (0-5) /lpf U Epithel Cells (Auto) 5-10 H (0-5) /lpf Urine Bacteria (Auto) Negative (Negative) SARS-CoV-2, RNA, NAAT (NEGATIVE) 12/10/22 Range/Units 01:15 WBC (4.8-10.8) K/ul RBC (4.70-6.10) M/uL Hgb (14.0-18.0) g/dl Hct (42.0-52.0) % MCV (80.0-100.0) fL MCH (25.0-34.0) pg MCHC (32.0-36.0) g/dL RDW Std Deviation (36.4-46.3) fL RDW Coeff of Randi (11.5-14.5) % Plt Count (130-400) K/uL MPV (9.4-12.4) fL Immature Gran % (Auto) % Neut % (Auto) % Lymph % (Auto) % Chester % (Auto) % Eos % (Auto) % Baso % (Auto) % Neut # (Auto) (1.40-6.50) K/uL Lymph # (Auto) (1.2-3.4) K/uL [place] # (Auto) (0.11-0.59) K/uL Eos # (Auto) (0-0.50) K/uL Baso # (Auto) (0-0.2) K/uL Immature Gran # (Auto) (0.01-0.20) K/uL Toxic Vacuolation Polychromasia Target Cells Sodium (136-145) mmol/L Potassium (3.5-5.1) mmol/L Chloride (98-107) mmol/L Carbon Dioxide (21-32) mmol/L Anion Gap (3-11) BUN (6-23) mg/dl Creatinine (0.6-1.4) mg/dl Est Cr Clr Drug Dosing Est GFR ( Amer) ml/min Est GFR (Non-Af Amer) ml/min BUN/Creatinine Ratio (10-20) Glucose (70-99(Fasting)) mg/dl Calcium (8.5-10.1) mg/dl Total Bilirubin (0.2-1.0) mg/dl AST (13-39) U/L ALT (7-52) U/L Alkaline Phosphatase (34-104) U/L Troponin I High Sens (0-20) pg/ml Total Protein (6.0-8.3) gm/dl Albumin (3.4-5.0) gm/dl Globulin (2.5-4.0) gm/dl Albumin/Globulin Ratio (0.9-2) Lipase (11-82) U/L Urine Color Urine Appearance (Clear) Urine pH (4.5-7.5) Ur Specific [place] (1.000-1.030) Urine Protein (Negative) Urine Glucose (UA) (Negative) Urine Ketones (Negative) Urine Blood (Negative) Urine Nitrite (Negative) Urine Bilirubin (Negative) Urine Urobilinogen (Negative) Ur Leukocyte Esterase (Negative) Urine WBC (Auto) (0-5) /hpf Urine RBC (Auto) (0-4) /hpf U Hyaline Cast (Auto) (0-5) /lpf U Epithel Cells (Auto) (0-5) /lpf Urine Bacteria (Auto) (Negative) SARS-CoV-2, RNA, NAAT NEGATIVE (NEGATIVE) Imaging Data Radiologist's Impression: Abdomen/Pelvis CT 12/09/22 22:09 Exam(s): CT ABDOMEN + PELVIS With Contrast IV Amt: 112 ml optiray 320 EXAM: CT Abdomen and Pelvis With Intravenous Contrast CLINICAL HISTORY: abd pain/right side back pain. TECHNIQUE: Axial computed tomography images of the abdomen and pelvis with intravenous contrast. CTDI is 28 mGy and DLP is 586.04 mGy-cm. Automated exposure control was utilized for the study. A dose lowering technique was utilized adhering to the principles of ALARA. CONTRAST: Patient received 112 ml optiray 320 of IV contrast COMPARISON: No relevant prior studies available. FINDINGS: Lung bases: Patchy to confluent bibasilar airspace consolidations involving both lower lobes and minimally in the anteromedial minimally included right upper lobe. ABDOMEN: Liver: Unremarkable. No mass. Gallbladder and bile ducts: Unremarkable. No calcified stones. No ductal dilation. Pancreas: Unremarkable. No mass. No ductal dilation. Spleen: Unremarkable. No splenomegaly. Adrenals: Unremarkable. No mass. Kidneys and ureters: There is malrotation of the right kidney. The kidneys demonstrate normal enhancement without hydronephrosis or obstructing nephrolithiasis. Stomach and bowel: No evidence for focal high-grade bowel obstruction. There are a few small bowel loops in the inferior pelvis demonstrating retained material without evidence for bowel dilation. No significant mucosal thickening. PELVIS: Appendix: The appendix is suggested medial to the cecum but is poorly delineated. No secondary findings to suggest acute appendicitis. Bladder: Unremarkable. No mass. Reproductive: Unremarkable as visualized. ABDOMEN and PELVIS: Intraperitoneal space: Unremarkable. No free air. No significant fluid collection. Bones/joints: Degenerative changes involving the lumbar spine. No acute osseous abnormality. No dislocation. Soft tissues: Unremarkable. Vasculature: Unremarkable. No abdominal aortic aneurysm. Lymph nodes: Unremarkable. No enlarged lymph nodes. IMPRESSION: 1. Patchy to confluent bibasilar airspace consolidations involving both lower lobes and minimally in the anteromedial minimally included right upper lobe. Findings are consistent with pneumonia. 2. No evidence for focal high-grade bowel obstruction. There are a few small bowel loops in the inferior pelvis demonstrating retained material without evidence for bowel dilation. Suspect normal variation. However, subtle enteritis with delayed transit through the small bowel is also a consideration. No free intraperitoneal fluid or pneumoperitoneum. Electronically signed by: Kai Bright MD 12/10/22 00:29 AM Chest CTA 12/09/22 22:09 CR Exam(s): CTA CHEST IV Amt: 112ml optiray 320 EXAM: CT Angiography Chest With Intravenous Contrast CLINICAL HISTORY: Reason for exam: PE. TECHNIQUE: Axial computed tomographic angiography images of the chest with intravenous contrast. CTDI is 20 mGy and DLP is 586.04 mGy-cm. Automated exposure control was utilized for the study. A dose lowering technique was utilized adhering to the principles of ALARA. MIP reconstructed images were created and reviewed. COMPARISON: No relevant prior studies available. FINDINGS: Pulmonary arteries: There is a tiny partially obstructive pulmonary embolus in the left lower lobe subsegmental pulmonary artery. Aorta: No acute findings. No thoracic aortic aneurysm. Lungs: Moderate to heavy peribronchial thickening of the central and peripheral bronchi with right lower lobe consolidation and ground-glass patchy opacities throughout the lungs. Pleural space: Unremarkable. No significant effusion. No pneumothorax. Heart: Unremarkable. No cardiomegaly. No significant pericardial effusion. No evidence of RV dysfunction. Bones/joints: No acute fracture. No dislocation. Soft tissues: Unremarkable. Lymph nodes: Enlarged mediastinal hilar lymph nodes. IMPRESSION: 1. Tiny partially obstructive pulmonary embolus in the left lower lobe segmental pulmonary artery. 2. Findings concerning for atypical pneumonia with left lower lobe consolidation. Communications: Call Doctor Above results Electronically signed by: Jenny Partida MD 12/10/22 00:13 AM MDM Narrative Physical exam and history were performed. Nursing notes, EMR, and Medication List were personally reviewed. No social concerns include his family and living situation. Patient appears to have abdominal discomfort bringing him to the ER. He did leave AMA from the facility several days ago after a very high elevated white count in the context of having pneumonia. He has been taking his medication as prescribed, and his abdominal discomfort may be related to the antibiotics. Patient was seen during a period of very high ER volume and acuity with extended wait times. Nursing protocol order have been performed and some of these are available for my review at the time of patient encounter. Patient's blood work is as above and was reviewed. He does have an elevated, but improved white blood cell count. He does not have significant anemia or gross electrolyte imbalance. Transaminases are not diagnostic. Troponin is negative. Chest x-ray was performed and formally evaluated by myself. This was compared to chest x-ray last week does seem somewhat improved, but not completely resolved. The patient's presentation is quite atypical. While I do suspect his abdominal discomfort is from the antibiotics he will need CT imaging of the belly. He is a tobacco user and has persistent pneumonia on chest x-ray. Because of this CT angiogram was also performed. CT images were informally evaluated by myself and formally read by radiology. He does seem to have pneumonia on the CT, but more concerning he also has a left-sided pulmonary embolism. He may have some mild enteritis on CT of the belly, but no acute abdominal surgical process. Case was discussed with the on-call hospitalist, Dr. Almazan, who agreed to evaluate the patient here in the ER. I do have concerns about the patient staying in the hospital as he has social stressors and may leave AGAINST MEDICAL ADVICE. The patient on my conversation is understanding of the importance of staying in the hospital for treatment. I will leave treatment options to the hospitalist pending patient's formal admission. Please see the hospitalist dictation for further patient course, plan, and disposition. The chart was completed utilizing [employer] Speech Voice Recognition Software. Grammatical errors, random word insertions, pronoun errors, and incomplete sentences are an occasional consequence of this system due to software limitations, ambient noise, and hardware issues. Any formal questions or concerns about the content, text, or information contained within the body of this dictation should be directly addressed to the provider for clarification. . Impression & Plan Pulmonary embolism on left, Pneumonia Discharge Plan Visit Data Chief Complaint: Vomiting Stated Complaint: BLOOD IN STOOL,SOB,VOMITING ED Provider: [facility] ED Midlevel Provider: Juan Manuel Loya Discharge Problem: Pulmonary embolism on left, Pneumonia Patient Disposition: Admitted As Inpatient Discharge Instructions Interventions: ED Discharge Assessment Last Done: 12/10/22 03:14
[2022-12-10] MEDS: ALBUTEROL HFA 8 GM INHALER INH SCH ×4 (07:11→20:10)
--- NOTE | 2022-12-10 07:37 | Ultrasound Report ---
BILATERAL LOWER EXTREMITY VENOUS DOPPLER HISTORY: Acute pain and swelling of the lower legs PE COMPARISON STUDY: None. FINDINGS: There is normal compressibility, flow, and augmentation within the bilateral lower extremit y deep venous systems. IMPRESSION: No DVT within the right or left lower extremity. ACT 112: Negative or not required by law. Electronically signed by: Carter Khan M.D. 12/10/2022 7:36 AM
[2022-12-10] MEDS: NICOTINE 14 MG/24 HR PATCH TD SCH (08:15)
--- NOTE | 2022-12-10 08:16 | XRay Report ---
XR chest 1V portable CLINICAL HISTORY: abnormal cxr 6 days ago COMPARISON STUDY: Chest radiograph December 03, 2022 and October 02, 2016. FINDINGS: There is no pneumothorax. Consolidation within the medial basilar segment of the left lower lobe has progressed. Right basilar opacity has progressed. There is no evidence for pulmonary edema. No pleural effusion. Cardiac size is normal. Mediastinal contours are normal. IMPRESSION: Progression of bibasilar airspace opacities, including left lower lobe consolidation. Th is suggests pneumonia. Posttreatment radiographs to ensure resolution are recommended. ACT 112: Negative or not required by law. Electronically signed by: Dionicio Yadav M.D. 12/10/2022 8:14 AM
[2022-12-10] MEDS: SUCRALFATE 1 GM/10 ML UDC PO SCH ×4 (09:19→20:14)
[2022-12-10] MEDS: FAMOTIDINE 20 MG in SYRINGE 3 ML IV SCH ×2 (09:19→20:13)
[2022-12-10 11:25] LABS: Adenovirus PCR Not Detected (NotDetected); Bordetella parapertussis PCR Not Detected (NotDetected); Bordetella pertussis PCR Not Detected (NotDetected); Chlamydia pneumoniae PCR Not Detected (NotDetected); Coronavirus 229E PCR Not Detected (NotDetected); Coronavirus CoV-2 (COVID19)PCR Not Detected (NotDetected); Coronavirus HKU1 PCR Not Detected (NotDetected); Coronavirus NL63 PCR Not Detected (NotDetected); Coronavirus OC43PCR Not Detected (NotDetected); Human Metapneumovirus PCR Not Detected (NotDetected); Influenza A PCR Not Detected (NotDetected); Influenza B PCR Not Detected (NotDetected); Mycoplasma pneumoniae PCR Not Detected (NotDetected); Parainfluenza Virus 1 PCR Not Detected (NotDetected); Parainfluenza Virus 2 PCR Not Detected (NotDetected); Parainfluenza Virus 3 PCR Not Detected (NotDetected); Parainfluenza Virus 4 PCR Not Detected (NotDetected); Respiratory Syncytial VirusPCR Not Detected (NotDetected)
[2022-12-10 11:33] LABS: Rhinovirus/Enterovirus PCR DETECTED (NotDetected)
[2022-12-10] MEDS ORDERED: PANTOprazole 40 MG TAB PO STA (17:35)
--- NOTE | 2022-12-10 20:09 | Hospitalist Progress Note ---
Date of Service December 10, 2022 Assessment & Plan (1) Pulmonary embolism on left: (2) Pneumonia: (3) Hypoxia: (4) Asthma: (5) Tobacco use disorder: (6) Rhinovirus infection: (7) Abdominal pain: (8) Severe protein-calorie malnutrition: (9) History of alcoholism: (10) History of marijuana use: Plan 1. transition lovenox to Eliquis 10mg BID x 7 days then 5mg BID thereafter. VTE is unprovoked; highly concerning for underlying malignancy given his extensive weight loss. 2. CTA chest shows extensive pneumonia - I do suspect bacterial superinfection in setting of rhinovirus infection. Cont IV abx. 3. epigastric abd pain - nothing obvious on CT a/p. Gastric ulcer? Duodenal ulcer? Gastric cancer? other? Start PPI + carafate; H2 john as needed. He will need GI w/u as outpatient after recovery from his pneumonia. 4. Fe studies in AM due to microcytosis. Admission and Anticipated Discharge Date Admission Date: December 10, 2022 Subjective tele wnl overnight pt coughing and mild [place] but overall improved from yesterday did recently move from [place], [place] but no other prolonged travel no recent surgery father - age 88 - had blood clots recently but otherwise no fam hx of VTE has had abd pain - upper - "for years" but worse in the last few months he is a former alcoholic, having stopped drinking 6+ months ago he has lost min 50 pounds of weight over the last year - attributes it to poor eating from the etoh stools - no overt blood no prior h/o Fe def Physical Exam Physical Exam: gen - thin, NAD mouth - MMM neck - no JVD heart - RRR, s1 s2, no murmur lungs - decreased BS bases, CTA apices; minimal rales bases; no wheeze abd - soft, tender epigastric region w palpation, BS+, no HSM, ND, no obvious hernia ext - no edema, pulses 2+ b/l Results & Data Results & Data Vital Signs (Past 12 Hours) Vital Signs Temp Pulse Pulse Resp BP Pulse Ox O2 Del Method 12/10/22 19:00 36.5 C 73 16 120/75 92 Room Air 12/10/22 15:58 36.6 C 61 18 140/72 93 Room Air 12/10/22 15:26 75 16 96 Room Air 12/10/22 15:16 68 12/10/22 11:41 37.2 C 55 L 18 132/69 93 Room Air Laboratory Results Laboratory Results - last 24 hr 12/09/22 12/09/22 12/09/22 20:10 20:11 20:11 WBC 11.84 H RBC 5.25 Hgb 14.2 Hct 39.1 L MCV 74.5 L MCH 27.0 MCHC 36.3 H RDW Std Deviation 35.9 L RDW Coeff of Randi 13.5 Plt Count 615 H MPV 8.7 L Immature Gran % (Auto) 2.0 Neut % (Auto) 58.8 Lymph % (Auto) 19.9 St[place] % (Auto) 10.5 Eos % (Auto) 7.8 Baso % (Auto) 1.0 Neut # (Auto) 6.96 H Lymph # (Auto) 2.36 [place]ard # (Auto) 1.24 H Eos # (Auto) 0.92 H Baso # (Auto) 0.12 Immature Gran # (Auto) 0.24 H Toxic Vacuolation 1+ Polychromasia 1+ Target Cells 2+ Sodium 137 Potassium 4.0 Chloride 104 Carbon Dioxide 27 Anion Gap 6 BUN 12 Creatinine 0.76 Est Cr Clr Drug Dosing Not Reportable Est GFR ( Amer) 114.9 Est GFR (Non-Af Amer) 99.2 BUN/Creatinine Ratio 15.8 Glucose 155 H Calcium 9.5 Total Bilirubin 0.3 AST 15 ALT 22 Alkaline Phosphatase 86 Troponin I High Sens 5.8 Total Protein 7.9 Albumin 3.7 Globulin 4.2 H Albumin/Globulin Ratio 0.9 Lipase 15 Urine Color Yellow Urine Appearance Cloudy A Urine pH 6.5 Ur Specific [place] 1.023 Urine Protein Trace H Urine Glucose (UA) Negative Urine Ketones Negative Urine Blood Negative Urine Nitrite Negative Urine Bilirubin Negative Urine Urobilinogen Negative Ur Leukocyte Esterase Negative Urine WBC (Auto) 1-5 Urine RBC (Auto) 0-4 U Hyaline Cast (Auto) 1-5 U Epithel Cells (Auto) 5-10 H Urine Bacteria (Auto) Negative Adenovirus (PCR) B. pertussis DNA (PCR) B.parapertussis DNA PCR C. pneumoniae DNA (PCR) Coronavirus OC43 (PCR) Coronavirus HKU1 (PCR) Coronavirus 229E (PCR) SARS-CoV-2 (PCR) Coronavirus NL63 (PCR) Human Metapneumovir PCR Influenza Type A (PCR) Influenza Type B (PCR) M. pneumoniae (PCR) Parainfluenza 1 (PCR) Parainfluenza 2 (PCR) Parainfluenza 3 (PCR) Parainfluenza 4 (PCR) RSV (PCR) Entero/Rhino (PCR) SARS-CoV-2, RNA, NAAT 12/10/22 12/10/22 01:15 09:35 WBC RBC Hgb Hct MCV MCH MCHC RDW Std Deviation RDW Coeff of Randi Plt Count MPV Immature Gran % (Auto) Neut % (Auto) Lymph % (Auto) [place] % (Auto) Eos % (Auto) Baso % (Auto) Neut # (Auto) Lymph # (Auto) [place] # (Auto) Eos # (Auto) Baso # (Auto) Immature Gran # (Auto) Toxic Vacuolation Polychromasia Target Cells Sodium Potassium Chloride Carbon Dioxide Anion Gap BUN Creatinine Est Cr Clr Drug Dosing Est GFR ( Amer) Est GFR (Non-Af Amer) BUN/Creatinine Ratio Glucose Calcium Total Bilirubin AST ALT Alkaline Phosphatase Troponin I High Sens Total Protein Albumin Globulin Albumin/Globulin Ratio Lipase Urine Color Urine Appearance Urine pH Ur Specific [place] Urine Protein Urine Glucose (UA) Urine Ketones Urine Blood Urine Nitrite Urine Bilirubin Urine Urobilinogen Ur Leukocyte Esterase Urine WBC (Auto) Urine RBC (Auto) U Hyaline Cast (Auto) U Epithel Cells (Auto) Urine Bacteria (Auto) Adenovirus (PCR) Not Detected B. pertussis DNA (PCR) Not Detected B.parapertussis DNA PCR Not Detected C. pneumoniae DNA (PCR) Not Detected Coronavirus OC43 (PCR) Not Detected Coronavirus HKU1 (PCR) Not Detected Coronavirus 229E (PCR) Not Detected SARS-CoV-2 (PCR) Not Detected Coronavirus NL63 (PCR) Not Detected Human Metapneumovir PCR Not Detected Influenza Type A (PCR) Not Detected Influenza Type B (PCR) Not Detected M. pneumoniae (PCR) Not Detected Parainfluenza 1 (PCR) Not Detected Parainfluenza 2 (PCR) Not Detected Parainfluenza 3 (PCR) Not Detected Parainfluenza 4 (PCR) Not Detected RSV (PCR) Not Detected Entero/Rhino (PCR) DETECTED A* SARS-CoV-2, RNA, NAAT NEGATIVE PG Care Time/CCT Total # of Minutes Spent Total Time Spent with Patient: Total time spent is greater than 50% in coordination of care (as documented) at patient's floor/unit and/or counseling patient: Coding Level of Care Code None Diagnoses Pulmonary embolism on left I26.99 Pneumonia J18.9 Hypoxia R09.02 Asthma J45.909 Tobacco use disorder F17.200 Rhinovirus infection B34.8 Abdominal pain R10.9 Severe protein-calorie malnutrition E43 History of alcoholism F10.21 History of marijuana use F12.91
--- NOTE | 2022-12-11 02:01 | Electrocardiogram Report ---
Test Reason : Blood Pressure : / mmHG Vent. Rate : 057 BPM Atrial Rate : 057 BPM P-R Int : 152 ms QRS Dur : 082 ms QT Int : 438 ms P-R-T Axes : 084 106 066 degrees QTc Int : 426 ms Sinus bradycardia with marked sinus arrhythmia Rightward axis Borderline ECG When compared with ECG of 03-DEC-2022 18:53, Vent. rate has decreased BY 39 BPM Confirmed by Leif Jacob ([id number]) on 12/11/2022 2:00:45 AM Referred By: REFERRED SELF Confirmed By:Leif Jacob
[2022-12-11 07:06] LABS: Hematocrit (blood only) 41.7 % (42.0-52.0); Hemoglobin 14.5 g/dl (14.0-18.0); Mean Corpuscular Hgb Conc 34.8 g/dL (32.0-36.0); Mean Corpuscular Volume 74.9 fL (80.0-100.0); Mean Platelet Volume 8.9 fL (9.4-12.4); Platelet Count 561 K/uL (130-400); RDW Coefficient of Variation 13.4 % (11.5-14.5); RDW Standard Deviation 35.8 fL (36.4-46.3); Red Blood Count 5.57 M/uL (4.70-6.10); White Blood Count 7.88 K/ul (4.8-10.8)
[2022-12-11] MEDS: ALBUTEROL HFA 8 GM INHALER INH SCH ×2 (07:08→11:09)
[2022-12-11 07:19] LABS: BUN Creatinine Ratio 8.1 (10-20); Calcium 9.1 mg/dl (8.5-10.1); Creatinine Clr Calc Pharmacy 88.5 ml/min; Est GFR (African American) 109.2 ml/min; Est GFR (Non-African American) 94.3 ml/min; Potassium 3.9 mmol/L (3.5-5.1)
--- NOTE | 2022-12-11 07:32 | Electrocardiogram Report ---
Test Reason : Blood Pressure : / mmHG Vent. Rate : 056 BPM Atrial Rate : 056 BPM P-R Int : 124 ms QRS Dur : 080 ms QT Int : 440 ms P-R-T Axes : 030 101 052 degrees QTc Int : 424 ms Sinus bradycardia Rightward axis Borderline ECG When compared with ECG of 09-DEC-2022 22:50, No significant change was found Confirmed by Edin Larson ([id number]) on 12/11/2022 7:31:40 AM Referred By: REFERRED SELF Confirmed By:Duncan Larson
[2022-12-11 07:38] LABS: Ferritin 113.8 ng/ml (8-388)
[2022-12-11] MEDS ORDERED: cefTRIAXone SODIUM 1,000 MG in DEXTROSE 5% AD-VAN 50 ML IV SCH (09:00)
[2022-12-11] MEDS ORDERED: PANTOprazole 40 MG TAB PO SCH (09:00)
[2022-12-11] MEDS ORDERED: APIXABAN 5 MG TABLET PO SCH (09:00)
[2022-12-11] MEDS: FAMOTIDINE 20 MG in SYRINGE 3 ML IV SCH (09:17)
[2022-12-11] MEDS: SUCRALFATE 1 GM/10 ML UDC PO SCH (09:17)
[2022-12-11] MEDS: NICOTINE 14 MG/24 HR PATCH TD SCH (09:17)
[2022-12-11] MEDS: AZITHROMYCIN 500 MG in DEXTROSE 5% 250 ML IV SCH (10:45)
[2022-12-11 13:23] LABS: Estimated Average Glucose 111 mg/dl; Hemoglobin A1C 5.5 % (4.5-5.6)
--- NOTE | 2022-12-11 13:30 | Discharge Summary ---
Date of Service date of admission - December 10, 2022 date of discharge - December 11, 2022 Admission HPI Per Admitting Provider The patient is a 62-year-old male with a past medical history including asthma and tobacco use. He initially presented to the emergency department on 12/03/2022 with symptoms as above, except for left thigh pain. He was found to have pneumonia at that time, and was advised to be admitted to the hospital, however, he left AMA due to home living and working situation. He has a special needs child who is 16, and his and he all moved to the area 2 weeks ago. He has found a place to live, however, the abdomen living in the [facility] for a few days. He has been working at [employer], reports that he enjoys cooking, and is concerned about missing his job. Chest x-ray reveals bilateral lower lobe infiltrates. CT angiography chest PE protocol in addition, notes a small segmental left lower lobe pulmonary embolism. I have added bilateral lower extremity venous Dopplers, to assess for associated DVT. Principal Diagnosis 1. bilateral pneumonia 2. rhinovirus infection 3. left-sided pulmonary embolus 4. abdominal pain - concern for PUD, gastritis, etc - GI follow-up after discharge advised 5. tobacco use 6. prior history of alcohol use 7. severe weight loss - outpatient work-up needed Discharge Exam gen - thin, NAD mouth - MMM neck - no JVD heart - RRR, s1 s2, no murmur lungs - decreased BS bases, otherwise CTA b/l; no wheezes; no increased work of breathing abd - soft NT ND BS+ ext - no edema, pulses 2+ b/l psych - anxious Discharge Data Allergies Allergy/AdvReac Type Severity Reaction Status Date / Time No Known Allergies Allergy Unverified 12/09/22 21:24 Ordered Studies Chest X-Ray 12/09/22 21:22 XR chest 1V portable CLINICAL HISTORY: abnormal cxr 6 days ago COMPARISON STUDY: Chest radiograph December 03, 2022 and October 02, 2016. FINDINGS: There is no pneumothorax. Consolidation within the medial basilar segment of the left lower lobe has progressed. Right basilar opacity has progressed. There is no evidence for pulmonary edema. No pleural effusion. Cardiac size is normal. Mediastinal contours are normal. IMPRESSION: Progression of bibasilar airspace opacities, including left lower lobe consolidation. This suggests pneumonia. Posttreatment radiographs to ensure resolution are recommended. ACT 112: Negative or not required by law. Electronically signed by: Dionicio Yadav M.D. 12/10/2022 8:14 AM Abdomen/Pelvis CT 12/09/22 22:09 Exam(s): CT ABDOMEN + PELVIS With Contrast IV Amt: 112 ml optiray 320 EXAM: CT Abdomen and Pelvis With Intravenous Contrast CLINICAL HISTORY: abd pain/right side back pain. TECHNIQUE: Axial computed tomography images of the abdomen and pelvis with intravenous contrast. CTDI is 28 mGy and DLP is 586.04 mGy-cm. Automated exposure control was utilized for the study. A dose lowering technique was utilized adhering to the principles of ALARA. CONTRAST: Patient received 112 ml optiray 320 of IV contrast COMPARISON: No relevant prior studies available. FINDINGS: Lung bases: Patchy to confluent bibasilar airspace consolidations involving both lower lobes and minimally in the anteromedial minimally included right upper lobe. ABDOMEN: Liver: Unremarkable. No mass. Gallbladder and bile ducts: Unremarkable. No calcified stones. No ductal dilation. Pancreas: Unremarkable. No mass. No ductal dilation. Spleen: Unremarkable. No splenomegaly. Adrenals: Unremarkable. No mass. Kidneys and ureters: There is malrotation of the right kidney. The kidneys demonstrate normal enhancement without hydronephrosis or obstructing nephrolithiasis. Stomach and bowel: No evidence for focal high-grade bowel obstruction. There are a few small bowel loops in the inferior pelvis demonstrating retained material without evidence for bowel dilation. No significant mucosal thickening. PELVIS: Appendix: The appendix is suggested medial to the cecum but is poorly delineated. No secondary findings to suggest acute appendicitis. Bladder: Unremarkable. No mass. Reproductive: Unremarkable as visualized. ABDOMEN and PELVIS: Intraperitoneal space: Unremarkable. No free air. No significant fluid collection. Bones/joints: Degenerative changes involving the lumbar spine. No acute osseous abnormality. No dislocation. Soft tissues: Unremarkable. Vasculature: Unremarkable. No abdominal aortic aneurysm. Lymph nodes: Unremarkable. No enlarged lymph nodes. IMPRESSION: 1. Patchy to confluent bibasilar airspace consolidations involving both lower lobes and minimally in the anteromedial minimally included right upper lobe. Findings are consistent with pneumonia. 2. No evidence for focal high-grade bowel obstruction. There are a few small bowel loops in the inferior pelvis demonstrating retained material without evidence for bowel dilation. Suspect normal variation. However, subtle enteritis with delayed transit through the small bowel is also a consideration. No free intraperitoneal fluid or pneumoperitoneum. Electronically signed by: Kai Bright MD 12/10/22 00:29 AM Chest CTA 12/09/22 22:09 CR Exam(s): CTA CHEST IV Amt: 112ml optiray 320 EXAM: CT Angiography Chest With Intravenous Contrast CLINICAL HISTORY: Reason for exam: PE. TECHNIQUE: Axial computed tomographic angiography images of the chest with intravenous contrast. CTDI is 20 mGy and DLP is 586.04 mGy-cm. Automated exposure control was utilized for the study. A dose lowering technique was utilized adhering to the principles of ALARA. MIP reconstructed images were created and reviewed. COMPARISON: No relevant prior studies available. FINDINGS: Pulmonary arteries: There is a tiny partially obstructive pulmonary embolus in the left lower lobe subsegmental pulmonary artery. Aorta: No acute findings. No thoracic aortic aneurysm. Lungs: Moderate to heavy peribronchial thickening of the central and peripheral bronchi with right lower lobe consolidation and ground-glass patchy opacities throughout the lungs. Pleural space: Unremarkable. No significant effusion. No pneumothorax. Heart: Unremarkable. No cardiomegaly. No significant pericardial effusion. No evidence of RV dysfunction. Bones/joints: No acute fracture. No dislocation. Soft tissues: Unremarkable. Lymph nodes: Enlarged mediastinal hilar lymph nodes. IMPRESSION: 1. Tiny partially obstructive pulmonary embolus in the left lower lobe segmental pulmonary artery. 2. Findings concerning for atypical pneumonia with left lower lobe consolidation. Communications: Call Doctor Above results Electronically signed by: Jenny Partida MD 12/10/22 00:13 AM Venous Doppler Study 12/10/22 01:51 BILATERAL LOWER EXTREMITY VENOUS DOPPLER HISTORY: Acute pain and swelling of the lower legs PE COMPARISON STUDY: None. FINDINGS: There is normal compressibility, flow, and augmentation within the bilateral lower extremity deep venous systems. IMPRESSION: No DVT within the right or left lower extremity. ACT 112: Negative or not required by law. Electronically signed by: Carter Khan M.D. 12/10/2022 7:36 AM Hospital Course (1) Pneumonia: The patient was admitted for antibiotic therapy for his bilateral pneumonia, given therapeutic lovenox for his left-sided pulmonary emboli, and was given protonix + carafate for suspected PUD or gastritis. Pulmonary symptoms improved with the above measures. Lovenox was transitioned to Eliquis 10mg BID (x 7 days, then 5mg BID thereafter). Abdominal pain improved with PPI therapy & carafate. Blood cultures remained negative while here (drawn on 12/03/22). Respiratory BioFire was positive for rhinovirus. I do suspect that the patient's pneumonia was likely a combination of rhinovirus + bacterial superinfection. Leukocytosis resolved with IV antibiotic therapy for his pneumonia. At discharge we advised the following - * levofloxacin 750mg once daily x 5 days * nicoderm patch daily to assist with smoking cessation * pantoprazole 40mg BID * carafate 1gm BID x 5 days * ventolin HFA prn * Eliquis 10mg BID x 7 days, then 5mg BID thereafter The patient reported a significant amount of weight loss over the last 6-12 months. In light of his abdominal pain and weight loss advised [facility] Gastroenterology follow-up for consideration of endoscopies. He is also new to the area - having moved from [place], [place] - and will be set up with a new PCP for primary care needs. (2) Pulmonary embolism on left: Provoked - numerous car rides from [place], [place] to [place], [place] - as well as travel between [place] & [place]. I cannot rule out provocation as a result of underlying malignancy in light of severe weight loss, however. Will need minimum of 3 months of anticoagulation. (3) Tobacco use disorder: Nicoderm patch Counseled to quit (4) Rhinovirus infection: Respiratory BioFire + for such Supportive care (5) Abdominal pain: see #1 above (6) Severe protein-calorie malnutrition: see #1 above (7) History of alcoholism: in remission no signs of etoh withdrawal while here (8) History of marijuana use: (9) Asthma: no exacerbation while here despite #1 can use ventolin HFA prn for symptoms, however Total Time Total Time Spent Total Time Spent (In Minutes): 45 Discharge Plan Discharge Items Patient Disposition: Home - Self-Care Reason For Visit: PNEUMONIA Discharge Diagnosis: 1. bilateral pneumonia - likely due to combination of a viral infection ("rhinovirus") and bacteria - improved 2. left-sided pulmonary embolus (blood clot in lung) 3. stomach pain - concern for stomach ulcer, gastritis (irritation), or other upper GI problem - follow-up with GI after discharge 4. tobacco use 5. prior history of alcohol use 6. significant amount of weight loss - follow-up with GI for endoscopies mercy Activity: As commented below Activity Comment: gradually increase your activities over the next week Sexual Activity: Wait until after follow-up appointment Exercise/Sports: Wait until after follow-up appointment Driving/Machine Use: Resume 3 days after discharge Non-emergency contact: Primary Care Provider and Progressive Care Manager Call non-emergency contact if: you have any medication questions, your symptoms worsen, your pain is not controlled and you have a fever Follow-up/Referrals: Noah Sweet, [Physician] - 12/17/22 1:20 pm (With ADELINE) Jeffrey Hough MD [Resident] - 12/17/22 9:05 am (With Dr Gerber Please bring insurance info with to appt) Diet: Regular Addtl Attending Provider Instructions: Mr Webb, You were hospitalized for bilateral pneumonia, a blood clot in your left lung (also known as pulmonary embolus), and abdominal pain. You tested positive for a common respiratory/cold virus called "rhinovirus." Your illness likely began with this virus, and then later on you likely developed bacterial pneumonia. The rhinovirus can also cause pneumonia. You improved with IV antibiotics. For your blood clot we started you on blood thinners. You are now on "Eliquis" for your blood clot. We checked your legs for any residual DVT blood clots and the doppler ultrasounds were negative for DVTs in the legs. The exact cause of your blood clot is uncertain. It is possible that all of the back/forth travel between [place] & [place] caused it. Alternatively, whatever is causing your weight loss could also have increased your risk of blood clots. With respect to the abdominal pain - a CT scan did not show any specific abnormalities that would account for the pain. However, your pain did improve with acid reducers. This may suggest that an ulcer, gastritis (stomach irritation), or some other problem in the upper part of your gastrointestinal tract has been causing your pain. Recommendations - 1. antibiotics for pneumonia - start this TOMORROW, 12/12/22 - levofloxacin 750mg once daily x 5 days. 2. take once daily probiotics to help prevent diarrhea from the levofloxacin. 3. for blood clots of the lung - * Eliquis 10mg (2 tabs) twice daily x 7 days, then 5mg (1 tab) twice daily thereafter * take your first dose of Eliquis ROSS, 12/11/22 * you will have to take this medication for at least 3 months but possibly longer; please discuss with your family doctor 4. do not drink alcohol while on Eliquis. Do not drink alcohol while on antibiotics. 5. do not take any anti-inflammatory pills such aspirin, motrin, ibuprofen, naprosyn, etc. 6. ok to take [id number] tylenol as needed for aches/pains. 7. for stomach pain - * pantoprazole 40mg twice daily * sucralfate 1gram twice daily x 5 days * avoid spicy foods, fried foods, alcohol, fast foods, large amounts of caffeinated beverages (coffee, soda, etc) 8. for cough/congestion/wheezing you may take albuterol 2 puffs via the plastic spacer device every 6 hours as needed. 9. STOP the previous antibiotic given to you earlier in November (cephalexin). 10. may continue to use nicoderm patch to help you quit smoking. The patches are changed once daily. 11. ask your father and other close family members if anyone has something called "thalaseemia." It is an inherited problem that can cause mild anemia. It typically does not require any treatments. 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 The GI doctor may recommend upper & lower endoscopies due to your stomach pain and your severe weight loss. Return to [facility] if - * you have fevers over 100 degrees * you have worsening shortness of breath * you have chest pains * you have worsening abdominal pains * you have bleeding from any location as listed below * you develop severe diarrhea It was our pleasure to care for you! Addtl Knife Sharpener Provider Instructions: Anticoagulant (Blood Thinner) Medication Instructions: Your blood clot condition is typically treated with an anticoagulant. Anti coagulants will thin your blood to help prevent new clots. Your blood thinner is "ELIQUIS." This is a twice a day medication. * You should take your medication exactly as directed. * Never skip a dose. * Never take a double dose. If you miss a dose, take it as soon as you remember. Call your Primary Care doctor if you experience any of the following: * Swelling or Pain in your leg * Sudden, continuous pain deep in a muscle * Pain that worsens when you are active or when you stand still for a long time * Chest Pain * Sudden Shortness of Breath * Rapid or pounding heart beat * Fainting * Dizziness * Cough with blood or bloody sputum * Sweating more than normal * Bruises * Heavy or uncontrolled bleeding * Blood in your urine, stool or vomit * Black or tarry stools * Heavy nose bleeding Caring for Your Self at Home: * Avoid sitting, standing or lying down for long periods without moving your legs and feet * When traveling by car, stop to get out and move around at least once every 3 hours * On long airplane, train or bus rides, get up and move around when possible * If you can't get up, wiggle your toes and tighten your calves to keep your blood moving * when shaving do not use a traditional straight razor; use an electric shaver Follow Up: It is important for you to keep your follow up appointments with your medical provider. Pending Studies at Discharge: No Stand-Alone Forms: My [facility] [employer], Work/School Release, Smoking Cessation Medications and DC Order Prescriptions: New pantoprazole 40 mg Tablet,Delayed Release (Dr/Ec) 40 mg PO BID Qty: 60 0RF albuterol sulfate [Ventolin HFA] 90 mcg/actuation Hfa Aerosol Inhaler 2 puff inhalation Q6H PRN (Reason: cough/wheezing/shortness of breath) Qty: 1 0RF nicotine 7 mg/24 hr Patch 24 Hour 14 mg transdermal QAM Qty: 1 0RF Eliquis 5 mg Tablet 5 mg PO DIRECTED Qty: 60 2RF Rx Instructions: take 2 tablets twice daily x 7 days, then 1 tablet twice daily thereafter. Discontinued cephalexin 500 mg capsule 500 mg PO Q6H 10 Days Qty: 40 0RF Discharge Orders: Discharge Order (Routine); Ordered 12/11/22 Ordered By: Rogers Short/Other Patient Handouts: Pulmonary Embolism, Using an Inhaler with a Spacer Admission Data Admit Date/Time: 12/10/22 01:58 Attending Provider: Rogers Menjivar Admit Provider: Sameer Almazan Primary Care Provider: PCP,NO Other Interventions: Discharge Summary Assessment (RN) Last Done: 03/18/23 13:48 Coding Level of Care Code 06005 INP/OBS DISCH >30 MIN Diagnoses Pneumonia J18.9 Pulmonary embolism on left I26.99 Tobacco use disorder F17.200 Rhinovirus infection B34.8 Abdominal pain R10.9 Severe protein-calorie malnutrition E43 History of alcoholism F10.21 History of marijuana use F12.91 Asthma J45.909
== END 2022-12-11 13:49 | disposition home or self-care (01) | DRG 175 ==
LOC: ED 19:29 → SUATTDRO 12-10 01:58 → INTOOBSV 12-10 01:58 → 2S 12-10 01:58